=== PATIENT | female | born 1965 ===

== ENCOUNTER 2018-12-19 10:59 | Day surgery (SDC) | payer OTHER ==
[~2018-12-19 10:59] MED LIST: Buffered Lidocaine 1% SYRIN* 1 ML/SYRINGE INTRADERM ONE; Lactated Ringers 1000 ML Bag* 1,000 ML IV SCH; Sodium Citrate/Citric Acid* 15 ML UDC ONE; Sodium Citrate/Citric Acid* 15 ML UDC PO ONE
[2018-12-19] MEDS ORDERED: Ketorolac INJ* 30 MG/ML 1 ML VIAL IV PRN (12:48)
[2018-12-19] MEDS ORDERED: Ondansetron INJ* 2 MG/ML VIAL IV PRN (12:48)
[2018-12-19] MEDS ORDERED: Naloxone* 0.4 MG/ML 1 ML VIAL IV PRN (12:48)
[2018-12-19] MEDS ORDERED: fentaNYL* 50 MCG/ML 2 ML VIAL (100 MCG VIAL) IV PRN (12:48)
[2018-12-19] MEDS ORDERED: Bupivacaine 0.25% SDV* 30 ML ONE (12:59)
[2018-12-19] MEDS ORDERED: fentaNYL* 50 MCG/ML 2 ML VIAL (100 MCG VIAL) ONE (13:25)
[2018-12-19] MEDS ORDERED: Lidocaine 2% PF * 5 ML VIAL ONE (13:28)
[2018-12-19] MEDS ORDERED: Propofol* 10 MG/ML 20 ML BTL ONE (13:28)
[2018-12-19 14:26] VITALS: BP 110/63
--- NOTE | 2018-12-19 16:15 | OP ---
DATE OF OPERATION: 12/19/18 [facility] DATE OF : 69 SURGEON: Oscar Morse MD REACTOR [employer] SUPERVISOR: AMANDA Augustin ANESTHESIOLOGIST: Dr. Ortiz. ANESTHESIA: General. PRE-OP DIAGNOSIS: Right carpal tunnel syndrome. POST-OP DIAGNOSIS: Right carpal tunnel syndrome. OPERATIVE PROCEDURE: Right endoscopic carpal tunnel release. INDICATIONS: Adela has carpal tunnel syndrome. We had talked about her options. She wanted to proceed with an endoscopic release. She understands there is risk associated with any surgery including the risk of neurological injury. ESTIMATED BLOOD LOSS: 1 mL. COMPLICATIONS: None. FINDINGS: See above and below. DESCRIPTION OF PROCEDURE: Adela was seen in the preoperative holding area. The correct site, side, and procedure were identified. We came back to the operating room where the arm was exsanguinated and the tourniquet was inflated to 225 mmHg. I made a 1 cm transverse incision just proximal to the wrist flexion crease and just ulnar to the palmaris longus tendon. Dissection was carried down. The distal antebrachial fascia was opened transversely bluntly with a tenotomy scissors. A 2- prong skin hook was placed. The synovial stripper followed by the dilators and a Q-tip were used to dilate and dry out the carpal tunnel. The MicroAire endoscopic carpal tunnel device was then introduced. When I had it in the appropriate location, I pulled the trigger to elevate the blade. I then pulled back in a very controlled manner to release the transverse carpal ligament from distal to proximal on the ulnar most aspect. I placed a Afshin retractor and then I reconfirmed that the release was complete, everything was looking very good. I released the distal antebrachial fascia proximally. Once I had confirmed the release distally and proximally, we irrigated out the wound. The skin was closed with a 3-0 Monocryl and a Steri -Strip. 0.25% Marcaine was infiltrated all around the operative area. The soft dressing was applied and she was taken to the recovery room in stable condition. [id number]/[facility] #: [id number] MTDD
== END 2018-12-19 15:04 | disposition home or self-care (01) ==
LOC: OREAST 10:59
PROVIDERS: ATTEND Orthopaedic Surgery Hand Surgery
DX: G56.01 Carpal tunnel syndrome, right upper limb (principal); Z87.891 Personal history of nicotine dependence
CPT/HCPCS: A9270-GY; J2704; J3010; J3490

== ENCOUNTER 2019-01-09 06:46 | Day surgery (SDC) | payer OTHER ==
[~2019-01-09 06:46] MED LIST changes: -Sodium Citrate/Citric Acid* 15 ML UDC ONE; -Sodium Citrate/Citric Acid* 15 ML UDC PO ONE
[2019-01-09] MEDS ORDERED: Bupivacaine 0.5% SDV PF* 30ML VIAL ONE (07:17)
[2019-01-09] MEDS ORDERED: Bupivacaine 0.25% SDV PF* 10 ML VIAL INJ ONE (08:05)
[2019-01-09] MEDS ORDERED: Famotidine IV* 10 MG/ML 2 ML (20 mg) ONE (08:06)
[2019-01-09] MEDS ORDERED: Midazolam* 1 MG/ML 2 ML VIAL (2 MG) ONE (08:10)
[2019-01-09] MEDS ORDERED: fentaNYL* 50 MCG/ML 2 ML VIAL (100 MCG VIAL) ONE (08:10)
[2019-01-09] MEDS ORDERED: Acetaminophen TAB* 325 MG PO PRN (08:47)
[2019-01-09] MEDS ORDERED: fentaNYL* 50 MCG/ML 2 ML VIAL (100 MCG VIAL) IV PRN (08:47)
[2019-01-09] MEDS ORDERED: HYDROcodone/ACETAMIN 5-325 MG* 1 TAB PO PRN (08:47)
[2019-01-09] MEDS ORDERED: PROCHLORPERAZINE INJ 5 MG/ML 2 ML VIAL IV PRN (08:47)
[2019-01-09] MEDS ORDERED: DiMENhydriNATE IV* 50 MG/ML VIAL IV PUSH PRN (08:47)
[2019-01-09] MEDS ORDERED: diPHENhydraMINE IV* 50 MG/ML 1 ml VIAL (BENADRYL) IV PRN (08:47)
[2019-01-09] MEDS ORDERED: Ondansetron INJ* 2 MG/ML VIAL IV PRN (08:47)
[2019-01-09] MEDS ORDERED: Naloxone* 0.4 MG/ML 1 ML VIAL IV PRN (08:47)
[2019-01-09] MEDS ORDERED: Lidocaine 2% PF * 5 ML VIAL ONE (09:02)
[2019-01-09] MEDS ORDERED: Propofol* 10 MG/ML 20 ML BTL ONE (09:02)
[2019-01-09] MEDS ORDERED: Ketorolac INJ* 30 MG/ML 1 ML VIAL ONE (09:02)
[2019-01-09] MEDS ORDERED: Dexamethasone IV* 4 MG/ML 1 ML (4 MG) ONE (09:02)
[2019-01-09 10:04] VITALS: BP 110/73
--- NOTE | 2019-01-09 15:26 | OP ---
DATE OF OPERATION: 01/09/19 - [facility] DATE OF : 69 SURGEON: Oscar Morse MD VISUAL STYLIST: AMANDA Ho ANESTHESIOLOGIST: Dr. Egan. ANESTHESIA: General. PRE-OP DIAGNOSIS: Left carpal tunnel syndrome. POST-OP DIAGNOSIS: Left carpal tunnel syndrome. OPERATIVE PROCEDURE: Left endoscopic carpal tunnel release. INDICATIONS: Adela has carpal tunnel syndrome. She has done well with the right endoscopic release. We talked about risks and benefits and she wanted to do a left endoscopic carpal tunnel release. ESTIMATED BLOOD LOSS: 2 mL. COMPLICATIONS: None. FINDINGS: See above and below. DESCRIPTION OF PROCEDURE: Adela was seen in the preoperative holding area. The correct site, side, and procedure were identified. We came back to the operating room. The arm was prepped and draped in the usual fashion and a time- out was performed. The arm was exsanguinated with the Esmarch and the tourniquet was inflated to 250 mmHg. I made a 1 cm transverse incision just ulnar to the palmaris longus tendon and just proximal to the wrist flexion crease. Distal antebrachial facia was split transversely with the tenotomy scissors, a 2-prong skin hook was placed. I used the synovial stripper followed by the dilators and a Q-tip to dilate and dry out the carpal tunnel. The MicroAire endoscopic carpal tunnel system was then put into the appropriate place. I elevated the blade and performed the release from distal to proximal. Once I had conformed the release, I released the distal antebrachial facia proximally. At this point, everything was looking good. I irrigated out and closed the wound with a 4-0 Prolene suture and a Steri-Strip and soft dressing were applied and she was taken to the recovery room in stable condition. [id number]/[facility] #: [id number] ANDREEA
== END 2019-01-09 10:15 | disposition home or self-care (01) ==
LOC: OREAST 06:46
PROVIDERS: ATTEND Orthopaedic Surgery Hand Surgery
DX: G56.02 Carpal tunnel syndrome, left upper limb (principal); Z87.891 Personal history of nicotine dependence; F41.9 Anxiety disorder, unspecified
CPT/HCPCS: J1100; J1885; J2250; J2704; J3010; J3490

== ENCOUNTER 2019-08-11 05:43 | Day surgery (SDC) | payer OTHER ==
[~2019-08-11 05:43] MED LIST changes: -Lactated Ringers 1000 ML Bag* 1,000 ML IV SCH
[2019-08-11] MEDS ORDERED: Dexamethasone IV* 4 MG/ML 1 ML (4 MG) IV SLOW PU ONE (06:00)
[2019-08-11] MEDS ORDERED: Lactated Ringers 1000 ML Bag* 1,000 ML IV SCH (06:00)
[2019-08-11] MEDS ORDERED: Famotidine IV* 10 MG/ML 2 ML (20 mg) IV ONE (06:00)
[2019-08-11] MEDS ORDERED: Famotidine IV* 10 MG/ML 2 ML (20 mg) ONE (06:14)
[2019-08-11] MEDS ORDERED: Dexamethasone IV* 4 MG/ML 1 ML (4 MG) ONE (06:14)
[2019-08-11] MEDS ORDERED: Bupivacaine 0.25% SDV* 30 ML ONE (06:57)
[2019-08-11] MEDS ORDERED: Propofol* 10 MG/ML 20 ML BTL ONE (07:19)
[2019-08-11] MEDS ORDERED: Ketorolac INJ* 30 MG/ML 1 ML VIAL ONE (07:19)
[2019-08-11] MEDS ORDERED: Ondansetron INJ* 2 MG/ML VIAL ONE (07:19)
[2019-08-11] MEDS ORDERED: Midazolam* 1 MG/ML 5 ML VIAL (5 MG) ONE (07:19)
[2019-08-11] MEDS ORDERED: Naloxone* 0.4 MG/ML 1 ML VIAL IV PRN (07:50)
[2019-08-11 08:56] VITALS: BP 105/54
--- NOTE | 2019-08-11 20:57 | OP ---
DATE OF OPERATION: 08/11/19 - [facility] DATE OF : 69 SURGEON: Oscar Morse MD NURSE SCHOOL: AMANDA Muniz ANESTHESIOLOGIST: Dr. Lema. ANESTHESIA: Local MAC. PRE-OP DIAGNOSIS: Right trigger thumb. POST-OP DIAGNOSIS: Right trigger thumb. OPERATIVE PROCEDURE: Right trigger thumb release. INDICATIONS: Adela has the severe trigger thumb. It is locked in a little bit of flexion. We talked about treatment options. She wanted to proceed with surgery. ESTIMATED BLOOD LOSS: 2 mL. COMPLICATIONS: None. FINDINGS: See above and below. DESCRIPTION OF PROCEDURE: Adela was seen in the preoperative holding area. The correct site, side, and procedure were identified. We came back to the operating room where the arm was prepped and draped in the usual fashion and a time-out was performed. The arm was exsanguinated with the Esmarch and the tourniquet was inflated. I made a 1 cm transverse incision in the MCP joint flexion crease. Full- thickness flaps were raised off the tendon sheath. Ragnell retractors were placed. The A1 isauro was incised. After I incised that, the thumb came out into full hyperextension. Once I had completed the release proximally and distally with the tenotomy scissors, I had her flex and extend the thumb multiple times. She was able to move it fully. The wound was irrigated out and skin was closed with 4-0 nylon suture. Soft dressing was applied and she was taken to the recovery room in stable condition. [id number]/[facility] #: [id number] MTDD
== END 2019-08-11 09:17 | disposition home or self-care (01) ==
LOC: OR 05:43
PROVIDERS: ATTEND Orthopaedic Surgery Hand Surgery
DX: M65.311 Trigger thumb, right thumb (principal); Z87.891 Personal history of nicotine dependence
CPT/HCPCS: J1100; J1885; J2250; J2405; J2704; J3490